=== PATIENT | male | born 1950 | race Caucasian/White ===

== ENCOUNTER 2018-06-16 07:35 | Outpatient (CLI) | payer OTHER | END 2018-06-16 13:01 | disposition home or self-care (01) | LOC: LAB 07:35 | DX: R10.9 Unspecified abdominal pain (principal); I10 Essential (primary) hypertension ==

== ENCOUNTER → 2018-07-02 | Day surgery (SDC) | payer OTHER ==
[~2018-07-02] MED LIST: LOSARTAN-HCTZ1 EAC1 PO; MIRALAX17 GM PO; NEURONTIN300 MG PO; TOPROL XL25 M1 PO; TRAMADOL HCL50 MG PO; TYLENOL EXTRA500 MG PO; ZOFRAN4 MG PO
== END | disposition home or self-care (01) ==
LOC: ADM 06-29 09:15 → CIR.AMB 08:14
DX: K40.90 Unilateral inguinal hernia, without obstruction or gangrene, not specified as recurrent (principal); K43.9 Ventral hernia without obstruction or gangrene; D17.1 Benign lipomatous neoplasm of skin and subcutaneous tissue of trunk